=== PATIENT | female | born 1990 | race Two or more races ===

== ENCOUNTER 2019-01-30 19:29 | Emergency (ER) | payer SELFPAY ==
[2019-01-30 20:35] VITALS: TEMP 98.5; BMI 22.8
--- NOTE | 2019-01-30 20:41 | PDOC ---
History of Present Illness <Yue Fuentes - Last Filed: 01/30/19 20:57> - General History Source: Patient, Family, Significant Other - History of Present Illness Initial Comments: 01/30/19 20:36 Michelle Sherwood is an otherwise healthy 29F presenting with vasovagal syncope after her boyfriend had a syncopal episode. Patient's boyfriend had a sudden syncopal episode earlier today. When the patient heard about this, she says she experienced some anxiety and passed out. Syncope was witnessed by family members nearby and she was caught quickly and laid down, no bodily injury sustained. Denies any PMH, no heart problems, no prodromal dizziness, nausea, weakness, palpitations. Was out for a minute and awoke with no deficits, no urinary incontinence. Currently denies any headache, N/V, chest pain, palpitations, SOB, abd pain, dizziness, urinary sx, constipation/diarrhea. Taking cipro for a UTI. <Alexander Burciaga - Last Filed: 01/30/19 22:42> - General Chief Complaint: Syncope/Near Syncope Stated Complaint: SYNCOPE Time Seen by Provider: 01/30/19 20:07 Past History <Yue Fuentes - Last Filed: 01/30/19 20:57> - Past Medical History COPD: No - Suicide/Smoking/Psychosocial Hx Smoking History: Never smoked Hx Alcohol Use: Yes Drug/Substance Use Hx: Yes <Alexander Burciaga - Last Filed: 01/30/19 22:42> - Past Medical History Allergies/Adverse Reactions: Allergies Allergy/AdvReac Type Severity Reaction Status Date / Time No Known Allergies Allergy Verified 01/30/19 20:16 Review of Systems - Review of Systems Able to Perform ROS?: Yes Is the patient limited Nigerien proficient: Yes Constitutional: No: Symptoms Reported HEENTM: No: Symptoms Reported Respiratory: No: Symptoms reported Cardiac (ROS): Yes: Lightheadedness, Syncope. No: Chest Pain, Palpitations ABD/GI: No: Symptoms Reported : No: Symptoms Reported Musculoskeletal: No: Symptoms Reported Integumentary: No: Symptoms Reported Neurological: No: Symptoms reported Psychiatric: Yes: Anxiety Endocrine: No: Symptoms Reported Hematologic/Lymphatic: No: Symptoms Reported All Other Systems: Reviewed and Negative <Alexander Burciaga - Last Filed: 01/30/19 22:42> *Physical Exam - Vital Signs Last Vital Signs Temp Pulse Resp BP Pulse Ox 98.5 F 84 16 106/71 95 01/30/19 19:40 01/30/19 19:40 01/30/19 19:40 01/30/19 19:40 01/30/19 19:40 <Yue Fuentes - Last Filed: 01/30/19 20:57> - Vital Signs Last Vital Signs Temp Pulse Resp BP Pulse Ox 98.5 F 84 16 106/71 95 01/30/19 19:40 01/30/19 19:40 01/30/19 19:40 01/30/19 19:40 01/30/19 19:40 - Physical Exam General Appearance: Yes: Nourished, Appropriately Dressed, Thin. No: Apparent Distress HEENT: positive: EOMI, LG, Normal Voice, Symmetrical, Pharynx Normal. negative: Scleral Icterus (R), Scleral Icterus (L), Muffled/Hoarse voice, Pharyngeal Erythema, Tonsillar Exudate, Tonsillar Erythema, Rhinorrhea Neck: positive: Trachea midline, Normal Thyroid, Supple. negative: Tender, Lymphadenopathy (R), Lymphadenopathy (L) Respiratory/Chest: positive: Lungs Clear, Normal Breath Sounds. negative: Respiratory Distress, Crackles, Rales, Rhonchi Cardiovascular: positive: Regular Rhythm, Regular Rate. negative: Edema, Murmur Gastrointestinal/Abdominal: positive: Normal Bowel Sounds, Flat, Soft. negative : Tender, Organomegaly Musculoskeletal: positive: Normal Inspection. negative: CVA Tenderness Extremity: positive: Normal Capillary Refill, Normal Inspection, Normal Range of Motion. negative: Tender Integumentary: positive: Normal Color, Dry, Warm Neurologic: positive: gift shop clerk II-XII NML intact, Fully Oriented, Alert, Normal Mood/ Affect, Normal Response, Motor Strength 5/5 <Alexander Burciaga - Last Filed: 01/30/19 22:42> Medical Decision Making - Medical Decision Making 01/30/19 20:36 Michelle bradford Alcaraz is an otherwise healthy 29F presenting with vasovagal syncope after her boyfriend had a syncopal episode. Patient has a clear trigger for vasovagal reaction, has no head or other bodily injury, no cardiac history, no other concerning prodromal symptoms, had a witnessed fall with family present and was caught before hitting ground, and feels totally normal at this time. Low concern for cardiac cause, but will obtain ECG. No other interventions needed at this time. 01/30/19 20:36 ECG NSR, cardiac etiology highly unlikely. Good to discharge home. Evaluation of peeweeiendaily underway. 01/30/19 22:40 Reports history of headaches and has one right now, but says it is exactly like her prior daily headaches. Has not seen neurologist but saw optho and was told she no longer needed to wear glasses. Is concerned that this may be cause of fainting but is described as identical to daily headaches, highly unlikely. No neurological deficits on exam. Gave tylenol and instructed her to f/u with her doctor for further evaluation of headaches. <Alexander Burciaga - Last Filed: 01/30/19 22:42> *DC/Admit/Observation/Transfer - Discharge Dispostion Decision to Admit order: No <Yue Fuentes - Last Filed: 01/30/19 20:57> - Discharge Dispostion Decision to Admit order: No <Alexander Burciaga - Last Filed: 01/30/19 22:42> Diagnosis at time of Disposition: Vasovagal syncope - Discharge Dispostion Disposition: HOME Condition at time of disposition: Good - Referrals Referrals: [facility] [place] [facility] [place] [Provider Group] [facility] [Provider Group] - Patient Instructions Printed Discharge Instructions: DI for Syncope in Adults (Fainting), DI for Headache Additional Instructions: Ashley fuiste evaluado por un episodio de desmayo. Realizamos un electrocardiograma para verificar si diaz corazn jacqueline algn problema, mary no lo vimos. Es probable que haya tenido un perodo de desmayo debido a un evento emocional y, de lo contrario, le est stephanie. Consulte a diaz mdico de atencin primaria en los prximos 3 rosales. Si experimenta ms claritaos, dolor de skylar, dolor en el pecho, falta de aliento, nuseas, vmitos, debilidad, mareos o cualquier otro sntoma nuevo o preocupante , regrese a la heather de emergencias ms cercana. Que alguien se quede contigo hasta que te sientas estable. Asista a todas las citas de seguimiento segn las indicaciones de diaz mdico. Acustese de inmediato si comienza a sentir que podra desmayarse. Respira hondo y de manera toni. Espere hasta que todos los sntomas hayan pasado. Trinity suficientes lquidos para mantener diaz orina shruthi o de color amarillo plido. BUSQUE ATENCIN MDICA INMEDIATA SI: Tiene un jessa dolor de skylar. Tiene dolor inusual en el pecho, el abdomen o la espalda. Est sangrando por la boca o el recto, o tiene heces negras o alquitranadas. Tiene latidos cardacos irregulares o muy rpidos. Tienes dolor al respirar. Has repetido desmayos o sacudidas parecidas a gretchen convulsin maame un episodio. Se desmaya al sentarse o acostarse. Tienes confusin Tienes dificultad para caminar. Tienes debilidad severa. Tienes problemas de visin. Si se desmay, llame a los servicios de emergencia locales; no conduzca hasta el hospital. Print Language: FAROESE
--- NOTE | 2019-01-30 20:57 | PDOC ---
Documentation entered by Benito Erazo SCRIBE, acting as scribe for Yue Fuentes MD. Yue Fuentes MD: This documentation has been prepared by the Castro wu Elijah, SCRIBE, under my direction and personally reviewed by me in its entirety. I confirm that the documentation accurately reflects all work, treatment, procedures, and medical decision making performed by me. Attending Attestation - Resident Resident Name: Alexander Burciaga - ED Attending Attestation I have performed the following: I have examined & evaluated the patient, The case was reviewed & discussed with the resident, I agree w/resident's findings & plan - HPI HPI: 01/30/19 20:50 29 YOF no medical history presenting with vasovagal syncope after her boyfriend had a syncopal episode. Patient's boyfriend had a sudden syncopal episode earlier today. When the patient heard about this, she says she experienced some anxiety and syncopized, witnessed by family members nearby and she was caught quickly, no trauma. Denies any PMH, no cardiac issues, no prodromal dizziness, nausea, weakness, palpitations. +LOC approx 1 minute, came back to baseline. no sz/urinary incontinence. Currently denies any headache, N/V, chest pain, palpitations, SOB, abd pain, dizziness, urinary sx, constipation/diarrhea. Taking cipro for a UTI. - Physicial Exam PE: 01/30/19 20:54 Agree with the resident's HPI and PE as documented in the electronic medical record. NAD, well appearing, EOMI, PERRL, MMM, nl conjunctiva, anicteric; neck supple. lungs clear, RRR, abdomen soft nontender. Back nontender. CALVIN x4, no focal neuro deficits. No peripheral edema. normal color for ethnicity, WWP. - Medical Decision Making 01/30/19 20:55 Vital Signs Temp Pulse Resp BP Pulse Ox 98.5 F 84 16 106/71 95 01/30/19 19:40 01/30/19 19:40 01/30/19 19:40 01/30/19 19:40 01/30/19 19:40 DDx. syncope: considered interval abnormalities including short QTC or long QT syndrome, WPW, conduction abnormality, Brugada, ACS, PE, electrolyte disturbances, metabolic derangement. seizure, FINANCIAL PLANNING ADVISER lesion, CVA, ICH. EKG normal sinus rhythm at 81 bpm, no interval abnormalities, narrow QRS, ST and T wave segments and morphology normal. Nonspecific T wave abnormalities no e/o WPW or Brugada or channelopathies or interval derangements. SYNCOPE negative: No evidence of a cardiac arrhythmia such as Brugada, WPW, HOCM , Long or short QT based on clinical exam and EKG. Neurologic exam is nonfocal, not consistent with CVA or primary neurologic abnormality. DC with syncope instructions, likely vasovagal with stressful event witnessing significant other pass out. return precautions. PCP referral, hydration and supportive car.e 01/30/19 20:55 01/30/19 21:26 Heart Score/ECG Review #1 ECG reviewed & interpreted by me at: 20:35 General ECG Interpretation: Sinus Rhythm, Normal Rate, Normal Intervals Compared to previous ECG there are: Previous ECG unavail 01/30/19 21:27 EKG normal sinus rhythm at 81 bpm, no interval abnormalities, narrow QRS, ST and T wave segments and morphology normal. Nonspecific T wave abnormalities no e/o WPW or Brugada or channelopathies or interval derangements.
[2019-01-30] MEDS ORDERED: ACETAMINOPHEN 500 MG TABLET (FP) PO ONE (21:14)
[2019-01-30] MEDS ORDERED: ACETAMINOPHEN 325 MG TABLET (FP) ONE (21:26)
[2019-01-30 22:04] VITALS: BP 111/76; PULSE 80
--- NOTE | 2019-01-31 09:37 | EKG ---
Test Reason : Blood Pressure : / mmHG Vent. Rate : 081 BPM Atrial Rate : 081 BPM P-R Int : 160 ms QRS Dur : 076 ms QT Int : 376 ms P-R-T Axes : 071 082 058 degrees QTc Int : 436 ms NORMAL SINUS RHYTHM NORMAL ECG NO PREVIOUS ECGS AVAILABLE Confirmed by JODIE QUEEN, LEE ([id number]) on 01/31/2019 9:36:45 AM Referred By: Confirmed By:LEE FELICIANO MD
== END 2019-01-30 21:30 | disposition home or self-care (01) ==
LOC: JER 19:29
DX: R55 Syncope and collapse (principal)
CPT/HCPCS: 93005; 93010; 99282-25